=== PATIENT | female | born 1975 | race Two or more races ===

== ENCOUNTER 2017-07-11 06:18 | Day surgery (SDC) | payer MEDICARE, OTHER ==
[2017-07-11] MEDS ORDERED: FENTAnyl 50 MCG/ML VIAL (06:23)
[2017-07-11] MEDS ORDERED: ROCURONIUM 50 MG INJ (06:23)
[2017-07-11] MEDS ORDERED: GLYCOPYRROLATE 0.4 MG INJ (06:23)
[2017-07-11] MEDS ORDERED: MIDAZOLAM 1 MG/ML 2 ML INJ (06:23)
[2017-07-11] MEDS ORDERED: PROPOFOL 20 ML (06:23)
[2017-07-11] MEDS ORDERED: NEOSTIGMINE 3 MG/3 ML SYRINGE (06:23)
[2017-07-11] MEDS ORDERED: DEXAMETHASONE 4 MG/ML 1 ML INJ ×2 (06:24→07:49)
[2017-07-11] MEDS ORDERED: ONDANSETRON 4 MG INJ (06:24)
[2017-07-11] MEDS ORDERED: morphine (1 MG/ML) 10ML SYRINGE IV ×2 (06:30)
[2017-07-11] MEDS ORDERED: EPHEDrine SULFATE 50 MG/5 ML SYG IV (06:30)
[2017-07-11] MEDS ORDERED: OXYCODONE/ACETAMINOPHEN (5/325) TAB PO ×2 (06:30)
[2017-07-11] MEDS ORDERED: ONDANSETRON 4 MG INJ IV (06:30)
[2017-07-11] MEDS ORDERED: hydrALAzine 20 MG INJ IV (06:30)
[2017-07-11] MEDS ORDERED: DIPHENHYDRAMINE 50 MG INJ IV (06:30)
[2017-07-11] MEDS ORDERED: MEPERIDINE 25 MG INJ IV (06:30)
[2017-07-11] MEDS ORDERED: LABETALOL HCL 20MG INJ IV (06:30)
[2017-07-11] MEDS ORDERED: ATROPINE 1 MG/10 ML SYRINGE IV (06:30)
[2017-07-11] MEDS ORDERED: HYDROmorphONE (0.2 MG/ML) 10ML SYG IV ×3 (06:30)
[2017-07-11] MEDS ORDERED: FENTAnyl 50 MCG/ML VIAL IV ×2 (06:30)
[2017-07-11] MEDS ORDERED: MIDAZOLAM 1 MG/ML 2 ML INJ IV (06:30)
[2017-07-11] MEDS ORDERED: SUCCINYLCHOLINE CHLORIDE 100 MG/5 ML SYG IV (06:31)
[2017-07-11] MEDS ORDERED: CEFAZOLIN 1 GM INJ (06:31)
[2017-07-11] MEDS ORDERED: GELATIN SIZE 100 SPONGE (06:55)
[2017-07-11] MEDS ORDERED: THROMBIN 5000 UNIT VIAL (06:55)
[2017-07-11] MEDS ORDERED: LIDOCAINE 2% (SDV) 5 ML INJ (07:00)
[2017-07-11] MEDS: COCAINE 4% 4 ML TOP ×2 (09:04)
[2017-07-11] MEDS: LIDOCAINE 1%/EPI 30 ML INJ (09:04)
[2017-07-11] MEDS: morphine (1 MG/ML) 10ML SYRINGE IV ×2 (09:11→09:34)
[2017-07-11] MEDS ORDERED: HYDROCODONE/APAP (7.5/325) TAB PO (09:30)
[2017-07-11] MEDS: NEOMYC/POLYMYX/BACIT 30 GM OINT (12:13)
== END 2017-07-11 11:36 | disposition home or self-care (01) ==
LOC: SDS 06:18
DX: J32.8 Other chronic sinusitis (principal); J34.2 Deviated nasal septum; J34.3 Hypertrophy of nasal turbinates; I10 Essential (primary) hypertension; E78.5 Hyperlipidemia, unspecified; Z87.891 Personal history of nicotine dependence; E66.01 Morbid (severe) obesity due to excess calories; Z68.41 Body mass index [BMI] 40.0-44.9, adult
CPT/HCPCS: 30140; 84703; 87070; 87075; 88304